=== PATIENT | female | born 1985 | race Caucasian/White ===

== ENCOUNTER 2018-10-19 15:09 | Inpatient (IN) ==
[2018-10-19] MEDS: METHOCARBAMOL INJ 750 MG in SODIUM CHLORIDE 0.9% 100 ML IV SCH (16:35)
[2018-10-19] MEDS: methylPREDNISolone SOD SUC 125 MG/2 ML VIAL IV SCH (16:36)
[2018-10-19] MEDS: MEPERIDINE 50 MG/1 ML VIAL IV SCH (16:39)
[2018-10-19] MEDS: ONDANSETRON 4 MG/2 ML VIAL IV PRN (17:00)
[2018-10-19 17:25] LABS: Basophils % 0.5 % (0.0-0.8); Eosinophils # 0.3 10*3/uL (0.0-0.87); Eosinophils % 5.3 % (0.00-10.9); Hematocrit 36.9 VOL% (35.7-47.0); Hemoglobin 11.3 GM/DL (12.0-16.0); Immature Granulocytes % 0.2 %; Immature Granulocytes Absolute 0.01 #; Lymphocytes # 2.6 10*3/uL (1.4-4.0); Lymphocytes % 40.4 % (21.3-54.2); Mean Corpuscular HGB Conc 30.6 GM/DL (32-36); Mean Corpuscular Volume 92.5 FL (87-102); Monocytes % 7.3 % (1.7-12.7); Neutrophils % 46.3 % (38.7-73.9); Platelet Count 298 T/CUMM (130-400); Red Blood Count 3.99 MC/CUMM (3.8-5.5); Red Cell Distribution Width 14.6 % (9.3-17.3); White Blood Count 6.5 T/CUMM (4-12)
[2018-10-19 17:44] LABS: Calcium 8.5 MG/DL (8.5-10.1); Osmolality,Calculated 272.7 MOS/KG (273-304)
[2018-10-19 17:45] LABS: Apearance,Urine Slightly Hazy (Clear); Bacteria,Urine Few /HPF (Few); Bilirubin,Urine Negative (Negative); Blood, Urine Negative (Negative); Glucose,Urine (UA) Negative (Negative); Ketones,Urine Negative (Negative); Mucus,Urine Occasional /LPF (Occasional); Nitrite,Urine Negative (Negative); Protein,Urine Negative; RBC,Urine 1 /HPF (0-4); Squamous Epithelial Cell,Urine Many /HPF (0-10); Urine Color Yellow (Yellow); Urine Specific Gravity 1.009 (1.001-1.035); Urine Urobilinogen < 2.0 EU/DL (0.2-1.0); WBC,Urine 1 /HPF (0-6)
[2018-10-19 17:47] LABS: Albumin 3.7 G/DL (3.4-5.0); Bilirubin,Direct 0.1 MG/DL (0.0-0.20); Bilirubin,Indirect 0.3 MG/DL (0.0-1.0); Bilirubin,Total 0.4 MG/DL (0.2-1.0); Total Protein 7.2 G/DL (6.4-8.3)
[2018-10-19] MEDS: DEXTROSE 5% NACL 0.45% 1,000 ML IV SCH (17:57)
[2018-10-19] MEDS: clonazePAM 0.5 MG TABLET PO PRN (20:17)
[2018-10-19] MEDS: oxyCODONE/ACETAMINOPHEN 5-325 MG TABLET PO PRN (21:24)
[2018-10-19] MEDS: POLYETHYLENE GLYCOL POWDER 17 GM PACK PO PRN (21:26)
[2018-10-19] MEDS: PANTOPRAZOLE 40 MG TABLET PO SCH (23:50)
[2018-10-20] MEDS: MEPERIDINE 50 MG/1 ML VIAL IV SCH ×3 (00:10→16:42)
[2018-10-20] MEDS: methylPREDNISolone SOD SUC 125 MG/2 ML VIAL IV SCH ×3 (00:31→16:41)
[2018-10-20] MEDS: METHOCARBAMOL INJ 750 MG in SODIUM CHLORIDE 0.9% 100 ML IV SCH ×3 (00:33→16:42)
[2018-10-20] MEDS: DEXTROSE 5% NACL 0.45% 1,000 ML IV SCH ×2 (04:18→20:35)
[2018-10-20] MEDS: ONDANSETRON 4 MG/2 ML VIAL IV PRN ×2 (04:19→13:04)
[2018-10-20] MEDS: KETOROLAC 30 MG/1 ML VIAL IV PRN (04:25)
[2018-10-20] MEDS ORDERED: NON-FORMULARY MEDICATION (Dextroamphetamine-Amphetamine [Adderall] 20 MG) PO SCH (08:00)
[2018-10-20] MEDS: METOPROLOL SUCCINATE XL 25 MG TABLET PO SCH (10:07)
[2018-10-20] MEDS: FLUoxetine 20 MG CAPSULE PO SCH (10:07)
[2018-10-20] MEDS: PANTOPRAZOLE 40 MG TABLET PO SCH ×2 (10:09→20:34)
[2018-10-20] MEDS: oxyCODONE/ACETAMINOPHEN 5-325 MG TABLET PO PRN ×2 (13:03→20:40)
[2018-10-20] MEDS: POLYETHYLENE GLYCOL POWDER 17 GM PACK PO PRN (13:04)
[2018-10-20] MEDS ORDERED: LACTULOSE 20 GM/30 ML UDCUP PO ONE (16:00)
[2018-10-20] MEDS: PROMETHAZINE 25 MG/1 ML VIAL IM PRN (18:41)
[2018-10-21] MEDS: METHOCARBAMOL INJ 750 MG in SODIUM CHLORIDE 0.9% 100 ML IV SCH ×3 (00:29→17:14)
[2018-10-21] MEDS: MEPERIDINE 50 MG/1 ML VIAL IV SCH ×2 (00:29→10:40)
[2018-10-21] MEDS: methylPREDNISolone SOD SUC 125 MG/2 ML VIAL IV SCH ×4 (00:33→23:50)
[2018-10-21] MEDS: PROMETHAZINE 25 MG/1 ML VIAL IM PRN ×2 (03:31→20:00)
[2018-10-21] MEDS: DEXTROSE 5% NACL 0.45% 1,000 ML IV SCH ×3 (06:42→18:39)
[2018-10-21] MEDS ORDERED: MEPERIDINE 25 MG/1 ML VIAL IV SCH (08:30)
[2018-10-21] MEDS: FLUoxetine 20 MG CAPSULE PO SCH (08:43)
[2018-10-21] MEDS: PANTOPRAZOLE 40 MG TABLET PO SCH ×2 (08:43→20:00)
[2018-10-21] MEDS: METOPROLOL SUCCINATE XL 25 MG TABLET PO SCH (08:43)
[2018-10-21] MEDS: MEPERIDINE 25 MG/1 ML VIAL IV SCH ×2 (11:25→19:59)
[2018-10-21] MEDS ORDERED: LACTULOSE 20 GM/30 ML UDCUP PO PRN (13:30)
[2018-10-21] MEDS: oxyCODONE/ACETAMINOPHEN 5-325 MG TABLET PO PRN (14:28)
[2018-10-21] MEDS: clonazePAM 0.5 MG TABLET PO PRN (23:49)
[2018-10-22] MEDS: METHOCARBAMOL INJ 750 MG in SODIUM CHLORIDE 0.9% 100 ML IV SCH ×3 (00:18→20:43)
[2018-10-22] MEDS: MEPERIDINE 25 MG/1 ML VIAL IV SCH (03:05)
[2018-10-22] MEDS: DEXTROSE 5% NACL 0.45% 1,000 ML IV SCH ×2 (06:03→17:04)
[2018-10-22] MEDS: MEPERIDINE 25 MG/1 ML VIAL IV PRN ×2 (06:04→20:40)
[2018-10-22] MEDS: methylPREDNISolone SOD SUC 125 MG/2 ML VIAL IV SCH ×2 (08:52→16:55)
[2018-10-22] MEDS ORDERED: LORazepam 2 MG/1 ML VIAL IM ONE (08:53)
[2018-10-22] MEDS: clonazePAM 0.5 MG TABLET PO PRN ×2 (08:57→22:00)
[2018-10-22] MEDS ORDERED: DEXAMETHASONE 10 MG/1 ML VIAL ONE (11:41)
[2018-10-22] MEDS ORDERED: fentaNYL 100 MCG/2 ML VIAL ONE (12:33)
[2018-10-22] MEDS ORDERED: PROPOFOL 200 MG/20 ML VIAL IV ONE (12:33)
[2018-10-22] MEDS ORDERED: LACTATED RINGERS 1,000 ML IV ONE (12:33)
[2018-10-22] MEDS ORDERED: ONDANSETRON 4 MG/2 ML VIAL ONE ×2 (12:33→12:39)
[2018-10-22] MEDS ORDERED: MIDAZOLAM 2 MG/2 ML VIAL ONE (12:33)
[2018-10-22] MEDS ORDERED: HYDROmorphone 2 MG/1 ML VIAL ONE (12:39)
[2018-10-22] MEDS: HYDROmorphone 2 MG/1 ML VIAL IV PRN ×4 (12:40→12:55)
[2018-10-22] MEDS ORDERED: ONDANSETRON 4 MG/2 ML VIAL IV PRN (12:43)
[2018-10-22] MEDS: FLUoxetine 20 MG CAPSULE PO SCH (13:30)
[2018-10-22] MEDS: PANTOPRAZOLE 40 MG TABLET PO SCH ×2 (13:30→20:39)
[2018-10-22] MEDS: METOPROLOL SUCCINATE XL 25 MG TABLET PO SCH (13:30)
[2018-10-22] MEDS: oxyCODONE/ACETAMINOPHEN 5-325 MG TABLET PO PRN (14:42)
[2018-10-22] MEDS: PROMETHAZINE 25 MG/1 ML VIAL IM PRN (16:55)
[2018-10-23] MEDS: methylPREDNISolone SOD SUC 125 MG/2 ML VIAL IV SCH ×3 (00:55→17:52)
[2018-10-23] MEDS: DEXTROSE 5% NACL 0.45% 1,000 ML IV SCH ×2 (04:35→21:29)
[2018-10-23] MEDS: METHOCARBAMOL INJ 750 MG in SODIUM CHLORIDE 0.9% 100 ML IV SCH ×3 (04:38→21:27)
[2018-10-23] MEDS: PROMETHAZINE 25 MG/1 ML VIAL IM PRN (04:50)
[2018-10-23] MEDS: MEPERIDINE 25 MG/1 ML VIAL IV PRN ×3 (06:21→22:09)
[2018-10-23] MEDS ORDERED: PROPOFOL 200 MG/20 ML VIAL IV ONE (09:00)
[2018-10-23] MEDS ORDERED: LIDOCAINE 2% 5 ML VIAL ONE (09:00)
[2018-10-23] MEDS: FLUoxetine 20 MG CAPSULE PO SCH (17:49)
[2018-10-23] MEDS: PANTOPRAZOLE 40 MG TABLET PO SCH ×2 (17:50→21:28)
[2018-10-23] MEDS: oxyCODONE/ACETAMINOPHEN 5-325 MG TABLET PO PRN (17:50)
[2018-10-23] MEDS: METOPROLOL SUCCINATE XL 25 MG TABLET PO SCH (17:50)
[2018-10-23] MEDS: KETOROLAC 30 MG/1 ML VIAL IV PRN (19:24)
[2018-10-23] MEDS ORDERED: PROMETHAZINE INJ 25 MG in SODIUM CHLORIDE 0.9% 50 ML IV PRN (20:00)
[2018-10-23] MEDS: POLYETHYLENE GLYCOL POWDER 17 GM PACK PO SCH (21:28)
[2018-10-23] MEDS: clonazePAM 0.5 MG TABLET PO PRN (23:30)
[2018-10-24] MEDS: methylPREDNISolone SOD SUC 125 MG/2 ML VIAL IV SCH ×2 (00:01→09:27)
[2018-10-24] MEDS: MEPERIDINE 25 MG/1 ML VIAL IV PRN ×2 (05:35→13:02)
[2018-10-24] MEDS: METHOCARBAMOL INJ 750 MG in SODIUM CHLORIDE 0.9% 100 ML IV SCH (05:35)
[2018-10-24] MEDS: FLUoxetine 20 MG CAPSULE PO SCH (09:25)
[2018-10-24] MEDS: METOPROLOL SUCCINATE XL 25 MG TABLET PO SCH (09:25)
[2018-10-24] MEDS: POLYETHYLENE GLYCOL POWDER 17 GM PACK PO SCH (09:25)
[2018-10-24] MEDS: PANTOPRAZOLE 40 MG TABLET PO SCH (09:26)
[2018-10-24] MEDS: oxyCODONE/ACETAMINOPHEN 5-325 MG TABLET PO PRN ×2 (09:33→15:23)
[2018-10-24 12:20] VITALS: BP 114/80
== END 2018-10-24 15:49 | disposition home or self-care (01) | DRG 552 ==
LOC: N.4E
PROVIDERS: ADMIT Psychiatry & Neurology Neurology; ATTEND Psychiatry & Neurology Neurology